=== PATIENT | male | born 1985 | race Two or more races ===

== ENCOUNTER 2022-11-13 15:28 | Emergency (ER) | payer BC ==
[~2022-11-13] VITALS: Ht 177.8 cm; Wt 90.0 kg
[2022-11-13 15:32] VITALS: TEMP 97.8
[2022-11-13] MEDS ORDERED: dexamethasone sod phosphate 10mg/ml inj IV STA (15:42)
[2022-11-13] MEDS ORDERED: probenecid 500mg tablet PO ONE (15:45)
[2022-11-13] MEDS ORDERED: fentaNYL/PF 50MCG/1 ML 2ML syringe IV ONE (15:45)
[2022-11-13] MEDS ORDERED: normal saline 1000ML IV soln IVB ONE (15:45)
[2022-11-13] MEDS ORDERED: ampicillin/sulbac 3gm/NS 100ml 100 ML IV SCH (15:45)
[2022-11-13] MEDS ORDERED: ampicillin/sulbac 3gm/NS 100ml 100 ML IV ONE (15:46)
[2022-11-13 16:13] VITALS: BP 128/79; PULSE 73; RESP 18; O2SAT 99
--- NOTE | 2022-11-13 16:15 | NUR ---
PT REPORTS THROAT PAIN HAS IMPROVED AND SWOLLOWING IS EASIER
[2022-11-13] MEDS ORDERED: AMOX-580 PO (16:26)
[2022-11-13] MEDS ORDERED: HYDR-3973 PO (16:26)
== END 2022-11-13 18:01 | disposition home or self-care (01) ==
LOC: ER 15:29
DX: J02.9 Acute pharyngitis, unspecified (principal); R59.0 Localized enlarged lymph nodes; Z79.899 Other long term (current) drug therapy; Z79.2 Long term (current) use of antibiotics
CPT/HCPCS: 96365; 96375; 99284; J0295; J1100; J3010; J7030